=== PATIENT | male | born 1945 | race Two or more races ===

== ENCOUNTER 2018-12-15 06:09 | Day surgery (SDC) | payer OTHER ==
[~2018-12-15] VITALS: Ht 167.6 cm; Wt 73.6 kg
[2018-12-15] MEDS ORDERED: LACTATED RINGERS 1,000 ML IV SCH (06:36)
[2018-12-15 06:38] VITALS: BP 145/94
[2018-12-15] MEDS ORDERED: CHANTIX (06:51)
[2018-12-15] MEDS ORDERED: LOSA100T14 PO (06:51)
[2018-12-15] MEDS ORDERED: BUPR150T73 PO (06:51)
[2018-12-15] MEDS ORDERED: ALBU8.5H8 INH (06:51)
[2018-12-15] MEDS ORDERED: SYMBICORT (06:51)
[2018-12-15] MEDS ORDERED: VERA240T10 PO (06:51)
[2018-12-15] MEDS ORDERED: RANI150C PO (06:51)
[2018-12-15] MEDS ORDERED: GABAPENTIN 300 MG CAPSULE PO ONE (07:00)
[2018-12-15] MEDS ORDERED: ACETAMINOPHEN 500 MG TABLET PO ONE (07:00)
[2018-12-15] MEDS ORDERED: hydrALAzine 20 MG/ML, 1ML IV PRN (08:00)
[2018-12-15] MEDS ORDERED: MEPERIDINE/PF 25MG/0.5ML IVPush PRN (08:00)
[2018-12-15] MEDS ORDERED: METOPROLOL 1 MG/ML, 5ML IV PRN (08:00)
[2018-12-15] MEDS ORDERED: FENTANYL PF 100 MCG/2ML IV PRN (08:00)
[2018-12-15] MEDS ORDERED: LABETALOL 5MG/ML, 20ML IV PRN (08:00)
[2018-12-15] MEDS ORDERED: HALOPERIDOL 5 MG/ML IV PRN ×2 (08:00)
[2018-12-15] MEDS ORDERED: HYDROmorphone 2 MG/ML, 1ML IVPush PRN (08:00)
[2018-12-15] MEDS ORDERED: OXYcodone 5 MG/5 ML ORAL.SOL UDC PO PRN (08:00)
[2018-12-15] MEDS ORDERED: DIPHENHYDRAMINE 50 MG/ML, 1ML IVPush PRN (08:00)
[2018-12-15] MEDS ORDERED: PROMETHAZINE 25 MG/ML, 1ML IV PRN (08:00)
[2018-12-15] MEDS ORDERED: PROCHLORPERAZINE 5 MG/ML, 2ML IV PRN (08:00)
[2018-12-15] MEDS ORDERED: PROPOFOL 100 ML ONE (08:05)
[2018-12-15] MEDS ORDERED: MIDAZOLAM 1 MG/ML, 2ML ONE (08:21)
[2018-12-15] MEDS ORDERED: FENTANYL PF 250 MCG/5ML ONE (08:21)
[2018-12-15] MEDS ORDERED: THROMBIN 5,000 UNIT VIAL TP ONE ×2 (09:16→09:40)
[2018-12-15] MEDS ORDERED: BUPIVACAINE/PF-EPI 0.5% 1:200K ONE (09:16)
[2018-12-15] MEDS ORDERED: BACITRACIN 50,000 UNIT ONE (09:16)
[2018-12-15] MEDS ORDERED: REMIFENTANIL 2 MG ONE (10:06)
[2018-12-15] MEDS ORDERED: REMIFENTANIL 1 MG ONE (10:06)
[2018-12-15] MEDS ORDERED: NEOSTIGMINE 1 MG/ML, 10ML ONE (10:39)
[2018-12-15] MEDS ORDERED: SUCCINYLCHOLINE 20 MG/ML, 10ML ONE (10:39)
[2018-12-15] MEDS ORDERED: ROCURONIUM 10MG/ML,5ML ONE (10:39)
[2018-12-15] MEDS ORDERED: CEFAZOLIN 1,000 MG ONE (10:39)
[2018-12-15] MEDS ORDERED: GLYCOPYRROLATE 0.2MG/1ML, 5ML ONE (10:39)
[2018-12-15] MEDS ORDERED: ONDANSETRON 2MG/ML, 2ML ONE (10:39)
[2018-12-15] MEDS ORDERED: PROPOFOL 10 MG/ML, 20ML ONE (10:39)
[2018-12-15] MEDS ORDERED: DEXAMETHASONE 4 MG/ML, 1ML ONE (10:39)
[2018-12-15] MEDS ORDERED: HYDROmorphone 2 MG/ML, 1ML ONE (10:58)
[2018-12-15] MEDS ORDERED: OXYcodone 5 MG/5 ML ORAL.SOL UDC ONE (10:58)
[2018-12-15] MEDS ORDERED: FENTANYL PF 100 MCG/2ML ONE (10:58)
[2018-12-15] MEDS: ALBUTEROL/IPRATROPIUM 2.5MG/0.5MG, 3 ML NPPB PRN ×2 (11:36→11:45)
[2018-12-15] MEDS ORDERED: ALBUTEROL/IPRATROPIUM 2.5MG/0.5MG, 3 ML ONE (11:37)
[2018-12-15] MEDS ORDERED: PHENYLEPHRINE 10 MG/ML ONE (14:57)
== END 2018-12-15 15:10 | disposition home or self-care (01) ==
LOC: OR 06:09
PROVIDERS: ATTEND Neurological Surgery
DX: M48.03 Spinal stenosis, cervicothoracic region (principal); M54.13 Radiculopathy, cervicothoracic region; I10 Essential (primary) hypertension; J43.9 Emphysema, unspecified; F17.210 Nicotine dependence, cigarettes, uncomplicated; Z87.39 Personal history of other diseases of the musculoskeletal system and connective tissue; Z90.49 Acquired absence of other specified parts of digestive tract; Z98.890 Other specified postprocedural states
CPT/HCPCS: 63045; 63048; 94640; 95938; 95941; C1713; J0330; J0690; J1100; J2250; J2370; J2405; J2704; J2710; J3010; J7120; J7620